=== PATIENT | male | born 1995 | race African-American/Black ===

== ENCOUNTER → 2016-12-19 | Outpatient (CLI) | payer OTHER ==
--- NOTE | 2016-12-19 14:28 | NUR ---
DRUG/ALCOHOL EVALUTATION/ 2 HRS/ Client was referred by probation. He is on probation for contributing alcohol to minors and in 2016 failed UA and has had 3 refusals for UA. Last drank alcohol mid 2015 and pot 2016. He has never had any counseling or treatment. Will staff and call colateral for recommendations.
--- NOTE | 2016-12-21 16:55 | CDE ---
ADMIT: 12/19/2016 RM/LOC: [facility] MR#: [id number] [facility] [address] [place], [place] [id number] NETTIE CASANOVA [address] [place] [address] Chemical Dependency Evaluation SEX: M AGE: 21 : 1995 A. DEMOGRAPHICS: NAME: Nettie Casanova DATE OF : 1995 EVALUATING COUNSELOR: JOSE J Hernandez, [facility] DATE OF EVALUATION: 12/19/2016 B. PRESENTING PROBLEM/CHIEF COMPLAINT: This client is a 21-year-old male. He resides with his parents in [place], [place], and he is currently unemployed. He reports that he was referred by his client sales and service officer after failing a UA in September 2016. He reports that he was on probation for contributing to a minor. He also shared that he has had three refusals for UA's. C. MEDICAL HISTORY: Client denies having any medical problems and he is not on any medications. D. WORK/SCHOOL/ HISTORY: WORK: Client is currently unemployed. 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 He has not worked for 3 months. SCHOOL: Client reports that he has a high school diploma. : He has never been in the . E. ALCOHOL/DRUG ASSESSMENT SUMMARY: ALCOHOL: Client reports he first drank at age 18, drinking 3-4 beers, and he drinks about two times a year. The most he has drank in a setting is 8 beers. The last time he drank was mid July 2016. MARIJUANA: Client first used it at age 19, 1 g at a sitting, and he uses it about 4 times a month, and the last time he reports using it was August 2016. COCAINE: Denies any use. METHAMPHETAMINES: Denies any use. HALLUCINOGENS: Denies any use. HEROIN: Denies any use. PRESCRIPTION DRUGS: Denies any use. OTHER DRUGS (INHALANTS, OVER THE COUNTER, ETC): Denies any use. NICOTINE: Started smoking at age 19, smokes almost daily. The last time he smoked a cigarette was 12/19/2016. F. LEGAL HISTORY: Client reports that at age 18, he got his first speeding ticket. He reports he ADMIT: 12/19/2016 RM/LOC: [facility] MR#: [id number] [id number] [address] [place] [address] Chemical Dependency Evaluation SEX: M AGE: 21 : 1995 has had three speeding tickets total. He also got a possession of a BB gun and shoplifting, which he got 90 days in care home. He has gotten two driving under suspension tickets and he got a contributing to minors. Now, he has failed a UA for probation and has had three refusals. I have a call in to probation; however, I have not talked to the client sales and service officer. G. FAMILY/SOCIAL/PEER HISTORY: Client was raised in [place], [place] with both his parents who are still . He states that he had a normal upbringing. His relationship with his mother and father is good. His father was the most dominant. His punishments were usually getting grounded from his TV or video games. His father is unemployed. He used to work at [employer]. His mother works at [employer]. He has 4 sisters, 1 is a nurse. The others are still in school. He has a brother who is 16, works as a enlisted aircrew/aerial observer/gunner and is still in school. When asked, he stated that he prefers to hang out with people that do not use drugs or alcohol and he tends to like to hang out with people instead of isolating. He has never been in a gang. H. PSYCHIATRIC/BEHAVIORAL HISTORY: Client was asked if he has ever been suicidal and he stated no, and there is no family history of suicide. He has never had any counseling or treatment for mental health issues. I. COLLATERAL INFORMATION: Contacted client's mother and she said that her and her are worried about their son, and when I asked does he use on a daily basis, she said yes. I said that he reported that he had not used for a few months and she laughed and said that that is not true. THE DRINKER TYPE RATING: Is a measure of how the client perceives their own drinking and/or using. This rating is indicative of how resistant or accepting the person is to the drinking problem. The client chose their rating from the following classifications: ALCOHOL Total Abstainer Light Social (non-problem) Drinker Moderate Social (non-problem) Drinker User Heavy Social (non-problem)Drinker Problem Drinker Alcoholic OTHER DRUG ADMIT: 12/19/2016 RM/LOC: [facility] MR#: [id number] [id number] [address] [place] [address] Chemical Dependency Evaluation SEX: M AGE: 21 : 1995 Nonuser Light Social (non-problem) User Moderate Social (non-problem) User Heavy Social (non-problem) User Problem User Addicted/Dependent The client rated himself a light social nonproblem drinker of alcohol and a nonuser of drugs. SUBSTANCE ABUSE SUBTLE SCREENING INVENTORY (SASSI): The SASSI is an assessment tool specifically designed to provide a clearer picture of what lies beneath the facade presented by most patients or clients. Scores on this assessment aid in distinguishing nonabusers from abusers, alcoholics from drug abusers and nondefensive clients from defensive ones. The incorporation of a "denial scale" further enhances the ability to make an accurate recommendation. Client scores are: Face Valid Alcohol (FVA): 2. Face Valid Other Drugs (FVOD): 0. Symptoms (SYM): 0. Obvious Attributes (OAT): 3. Subtle Attributes (SAT): 3. Defensiveness (DEF): 11. Supplemental Addiction Measure (DANIEL): 5. Family versus Controls (FAM): 12. Correctional (COR): 2. Random Answering Pattern (RAP): The decision rule shows a low probability of a [id number] substance use disorder. However, client's score on the defensiveness score was an 11, and if it is 8 or more an elevated DEF score increases the possibility of the SASSI missing individuals with a substance use disorder. This client could have answered the questions to make it look like he did not have a drug or alcohol problem. We administered the ASI. Please see attached summary sheet. K. CLINICAL IMPRESSION: This client presented for the drug and alcohol evaluation, was well-dressed, had good eye contact, was cooperative, and answered the questions. DIAGNOSES: 1. F10.20, alcohol use disorder, moderate. 2. F12.10, cannabis use disorder, mild. ADMIT: 12/19/2016 RM/LOC: [facility] MR#: [id number] [address] [place] [id number] [place] [address] Chemical Dependency Evaluation SEX: M AGE: 21 : 1995 3. Z560, unemployment unspecified. 4. Z650, conviction and civil and criminal proceedings with imprisonment- probation. 5. Z651, imprisonment and other incarceration. 6. Z720, tobacco use. Criteria showing these diagnoses is for alcohol tolerance: Client has needed increased amounts to get the same effects, recurrent use resulting in failure to fulfill major obligations, a great deal of time spent in using or recovering from the use, and continued use despite problems. For cannabis, criteria is recurrent use resulting in failure to fulfill obligations, a great deal of time spent in using it or recovering from the effects, continued use despite problems. Consequences client has had is legal. He has had several problems with legal situations. His family is worried about him. He is currently not working and he has not held any jobs for longer than 2 or 3 months. L. RECOMMENDATIONS PRESENTED TO CLIENT: Recommendations are for this client to attend the intensive outpatient program. CLIENT/FAMILY RESPONSE: This client does not feel he has a problem. The client's family believes that he does have a problem and he needs help. [facility] CLINICAL ASSESSMENT CRITERIA: Low/Medium/High Dimension 1 = Intoxication and Withdrawal (i.e. history of withdrawal, level of current use): Medium. Dimension 2 = Medical (i.e. , diabetes, medications, chronic conditions): Low. Dimension 3 = Emotional/Behavior Conditions (i.e. psych history, impulsivity, depression, anxiety, trauma history): Medium to high. Dimension 4 = Treatment Acceptance/Resistance (i.e. past history, minimization/blame, acknowledgement of problem, pressure to seek treatment, does not feel they have a problem): Medium. Dimension 5 = Relapse Potential (i.e. inability to abstain, use despite consequences, significant preoccupation, relapse despite outpatient treatment attempts): Medium to high. ADMIT: 12/19/2016 RM/LOC: [facility] MR#: [id number] [id number] [address] [place] [address] Chemical Dependency Evaluation SEX: M AGE: 21 : 1995 Dimension 6 = Recovery/Living Environment (i.e. current users reside in environment, family attitude, lack of consistent adult support in living environment, high exposure to using in social/work environment): Medium to high. CRIMINOGENIC RISK FACTORS: Low/Moderate/High Antisocial Attitudes: Medium. Antisocial Peers: Medium. Self Control Skills: Medium. Family Dysfunction: Medium. Past Criminality: Medium. JOSE J Hernandez, GABRIELLA/ zoe JOB #: [id number] CC:
== END | disposition home or self-care (01) ==
LOC: ADTC.GI 12:32
DX: F10.20 Alcohol dependence, uncomplicated (principal); F12.20 Cannabis dependence, uncomplicated

== ENCOUNTER 2017-02-01 00:54 | Emergency (ER) | payer SELFPAY ==
--- NOTE | 2017-02-01 20:05 | ER ---
ADMIT: 02/01/2017 RM/LOC: ER [facility] MR#: [id number] [id number] [facility] [address] [place] [id number] LUIZ CASANOVA [address] [place] [address] Emergency Room Report SEX: M AGE: 21 : 1995 DATE: 02/01/2017 TIME: 0054. Please refer to my T-sheet for complete H and P. HISTORY OF PRESENT ILLNESS: Briefly, the patient is a 21-year-old, who was brought in by ambulance and police were on the scene. Apparently, he was found intoxicated, person had picked him up and called for help. The patient was very cooperative on the way in. PHYSICAL EXAMINATION: VITAL SIGNS: Here, blood pressure 143/79, pulse 97, respirations 16, temp 97.6, and sat 98%. GENERAL: He is intoxicated, in no acute distress. HEENT: Head is atraumatic and normocephalic. Pupils are equal and reactive to light. Extraocular muscles intact. TMs clear. Throat clear. NECK: Soft and supple. No meningismus. LUNGS: Clear. HEART: Regular. ABDOMEN: Soft. SKIN: No rash. NEURO: He is alert. He is oriented. Nonfocal, but he is definitely very witted at this point. EMERGENCY DEPARTMENT COURSE: Uneventful. He was given a 4 L of normal saline bolus. He was observed for around 40 minutes. At this point, I am allowing him to go with police officers. ASSESSMENT: 1. Intoxicated. 2. Medical clearance. PLAN: Okay to go with the police officers. Avoid alcohol. Return if worse. Follow up with primary. Jorge L Valverde MD/ zoe JOB #: [id number] CC: Jorge L Valverde MD, Attending Physician
== END 2017-02-01 01:58 ==
LOC: ER 00:54
DX: F10.129 Alcohol abuse with intoxication, unspecified (principal)